=== PATIENT | male | born 1960 | race Caucasian/White ===

== ENCOUNTER 2018-02-14 16:37 | Emergency (ER) | payer MEDICAID, SELFPAY ==
--- NOTE | 2018-02-14 16:47 | DI.RAD_ITS ---
SYMPTOM/DIAGNOSIS: RECENT DIAGNOSIS OF LYMPHOMA, COUGH FRONTAL AND LATERAL CHEST: Comparison is made with 07/15/1997. Heart size and pulmonary vasculature are within normal limits. The lungs are clear and well expanded. The lungs do appear to be hyperinflated suggesting underlying COPD. No infiltrates, effusions or pneumothoraces are identified. Degenerative changes are seen in the spine. IMPRESSION: No acute pulmonary process.
[2018-02-14 16:51] VITALS: BP 126/89; PULSE 82; RESP 16; TEMP 37.2; O2SAT 97
--- NOTE | 2018-02-14 16:55 | ED.GENADUL_ITS ---
Discharge Plan Discharge Details Chief Complaint: RashLesion Primary Care Provider: Christian Vance ED Provider: Blair Dominguez Home Meds and New Rx's Prescriptions: No Action benzoyl peroxide 60 GM gel 60 gm Topical HS PRNRF: 0 ketoconazole 120 ML shampoo 120 ml Topical PRN RF: 0 trazodone 50 MG tablet 75 mg PO HS 90 Days Qty: 135 RF: 3 pravastatin 40 MG tablet 40 mg PO DAILY 90 Days Qty: 90 RF: 3 ranitidine HCl 150 MG tablet 150 mg PO BID PRN90 Days Qty: 180 RF: 3 escitalopram oxalate 20 MG tablet 20 mg PO DAILY Qty: 90 RF: 3 Medical Decision Making MDM Narrative Medical decision making narrative: 58-year-old male with recent biopsy-proven diagnosis of lymphoma for which he has pending follow-up with oncology. He presents on referral from primary care clinic with weeks of pruritic rash as well as new development of cough. He is pleasant and in no acute distress. His vital signs are reassuring. His pruritic rash may represent a paraneoplastic process. He is at risk for anemia or thrombocytopenia, must exclude pneumonia. Patient was referred for chest XR and laboratory tests. Chest x-ray shows evidence of COPD but no acute findings. Laboratories revealed white blood cell count of 13, platelets 225, hematocrit 48. Chemistries are reviewed and reassuring. Patient is without acute findings. Stable for outpatient management will follow up with the oncology clinic as planned. Will trial Atarax for the pruritus of his rash. He will return to the emergency department for any acute concern HPI - General Adult General Mode of arrival: ambulatory . Date/Time Provider Initiated Documentation: 02/14/18 16:40 . Limitations to Documentation: no limitations . Information obtained by: patient and family . History of Present Illness 58 year old M presents to the emergency department with the chief complaint of Cough and Rash, described as moderate, Patient started experiencing this day (s) and it has been constant. No exacerbating factors reported . Patient notes rash. HPI Narrative: 58-year-old male referred from primary care office. He was recently diagnosed with lymphoma by biopsy for which he has planned follow-up with oncology at [facility]. Seen in the office today for routine follow-up when he noted that he has had persistent itching rash that has been on arms, legs, chest and abdomen 4 weeks time, as well as a few days of worsening cough with production of sputum. Related Data Home Medications Medication Instructions Recorded Confirmed benzoyl peroxide 60 gm TOPICAL HS PRN script 08/05/13 02/14/18 ketoconazole 120 ml TOPICAL PRN script 10/08/13 02/14/18 ranitidine HCl 150 mg PO BID PRN 90 Days #180 01/09/18 02/14/18 tab-cap Previous Rx's Medication Instructions Recorded pravastatin 40 mg PO DAILY 90 Days #90 tab-cap 01/09/18 trazodone 75 mg PO HS 90 Days #135 tab-cap 01/09/18 escitalopram oxalate 20 mg PO DAILY #90 tab-cap 01/13/18 Allergies Allergy/AdvReac Type Severity Reaction Status Date / Time Penicillins Allergy Intermediate rash Unverified 02/14/18 16:56 amoxicillin Allergy Unknown Unverified 02/14/18 16:56 sulfamethoxazole Allergy Unknown Unverified 02/14/18 16:56 trimethoprim Allergy Unknown Unverified 02/14/18 16:56 simvastatin AdvReac Unknown muscle Unverified 02/14/18 16:56 cramps Review of Systems Review of Systems 8 systems reviewed and otherwise neg PFSH Family History Mother No problems noted. Father No problems noted. Social History frequency: daily Smoking/Tobacco Use Status: Never alcohol intake: never substance use type: does not use Surgical History Colonoscopy - IV Sedation (~05/2010) biopsy L Temporal Scalp (11/15/17) laryngoscopy (11/14/17) Exam Narrative Exam Narrative: GEN: awake, alert, oriented 3. Pleasant, well groomed, interactive. HEAD: Normocephalic, atraumatic ENT: Mucous membranes moist, L neck with large submandibular swollen lymph node. EYES: PERRL, EOMI NECK: Full ROM, no MEJIA, no menigismus CHEST/RESP: Nontender, clear to auscultation bilateral, no wheeze/rhonchi/rales CARDIOVASCULAR: RRR, no murmur, rub alex. 2+ Rad pulse bilateral ABDOMEN: Soft, nontender, no mass. +Bowel sounds EXT: Full ROM, no edema SKIN: raised erythematous rash with excoriations present onbilateral lower legs , abdomen, chest. No vesicles Neuro: Grossly normal neurologic exam, conversant, interactive. Psych: Speech fluent, thoughts congruent, affect normal
[2018-02-14 18:26] LABS: HCT 48.5 % (40.0-50.0); HGB 16.2 g/dL (13.5-17.5); Mean Corp. HGB Concentration 33.4 g/dL (32.0-36.0); Mean Corpuscular Hemoglobin 30.1 pg (27.0-33.0); Mean Platelet Volume 9.1 fL (8.0-11.0); Platelet Count 225 x1000/uL (130-400); RBC 5.39 m/cumm (4.50-6.00); RBC Distribution Width 13.3 % (11.8-14.1); White Blood Cell Count 13.87 k/cumm (4.4-10.8)
--- NOTE | 2018-02-14 18:34 | DI.VRAD_ITS ---
EXAM: XR Chest, 2 Views CLINICAL HISTORY: 58 years old, male; Signs and symptoms; Cough; Patient HX: Recent diagnosis of lymphoma TECHNIQUE: Frontal and lateral views of the chest. COMPARISON: No relevant prior studies available. FINDINGS: Lungs: Hyperexpanded lungs consistent with COPD. No pulmonary consolidation. Pleural space: Unremarkable. No pneumothorax. Heart: Unremarkable. No cardiomegaly. Mediastinum: Unremarkable. Bones/joints: Unremarkable. IMPRESSION: COPD. Dictated and Authenticated by: Raghavendra Yuo MD. Ordering:ORQUIDEA SEYMOUR MD
[2018-02-14 18:38] LABS: INR 1.1 (1.0-3.5)
[2018-02-14 18:45] LABS: Absolute Eosinophil Count 2.22 k/cumm (0.0-0.7); Absolute Lymphocyte Count 4.72 k/cumm (1.2-3.4); Absolute Monocyte Count 1.25 k/cumm (0.11-0.7); Absolute Neutrophil Count 5.69 k/cumm (1.2-6.7)
[2018-02-14 18:46] LABS: Diff Comment Manual Differential; RBC Morphology Normal
[2018-02-14 19:13] LABS: ALT 66 U/L (12-78); AST 27 U/L (15-37); Albumin 3.8 g/dL (3.4-5.0); Alkaline Phosphatase 134 U/L (46-116); Anion Gap 5.4 mmol/L (3-11); BUN 18 mg/dL (7-18); Bilirubin, Total 0.5 mg/dL (0.2-1.0); CO2 33.6 mmol/L (21.0-32.0); CREATININE 0.99 mg/dL (0.70-1.30); Calcium 9.1 mg/dL (8.5-10.1); Chloride 102 mmol/L (98-107); Glucose 89 mg/dL (70-100); Potassium 4.5 mmol/L (3.5-5.1); Sodium 141 mmol/L (136-145); Total Protein 7.7 g/dL (6.4-8.2)
[2018-02-14] MEDS: hydrOXYzine HCL 25 MG TAB 100 MG PO (19:32)
[2018-02-14 19:42] VITALS: BP 121/80; PULSE 78; RESP 16; TEMP 37; O2SAT 98
== END 2018-02-14 19:43 | disposition home or self-care (01) ==
PROVIDERS: Emergency Provider Emergency Medicine; PCP Family Medicine
DX: C85.90 Non-Hodgkin lymphoma, unspecified, unspecified site (principal); R21 Rash and other nonspecific skin eruption; L29.9 Pruritus, unspecified; R05 Cough
CPT/HCPCS: 36415; 80053; 99283; 71046; 85025; 85610

== ENCOUNTER 2018-03-20 12:36 | Outpatient (CLI) | payer MEDICAID, SELFPAY ==
[2018-03-20 13:42] LABS: Iron 93 ug/dL (50-175); Total Iron Binding Capacity 318 ug/dL (250-450); Transferrin Sat 29 % (20-55)
[2018-03-20 14:26] LABS: Vitamin B12 1086 pg/mL (193-986)
== END 2018-03-20 12:56 ==
PROVIDERS: PCP Family Medicine; Visit Provider Family Medicine
DX: R53.83 Other fatigue (principal)
CPT/HCPCS: 36415; 82607; 83540; 83550; 84443

== ENCOUNTER 2018-04-03 11:10 | Outpatient (CLI) | payer MEDICAID, SELFPAY ==
[2018-04-03 11:40] LABS: Abs Immature Grans 0.01 k/cumm (0.0-0.09); Absolute Basophil Count 0.05 k/cumm (0.0-0.2); Absolute Eosinophil Count 0.19 k/cumm (0.0-0.7); Absolute Lymphocyte Count 3.51 k/cumm (1.2-3.4); Absolute Monocyte Count 0.61 k/cumm (0.11-0.7); Absolute Neutrophil Count 4.43 k/cumm (1.2-6.7); Basophils % 0.6; Eosinophils % 2.2; HCT 46.4 % (40.0-50.0); HGB 15.4 g/dL (13.5-17.5); Immature Grans % 0.1; Lymphocytes % 39.9; Mean Corp. HGB Concentration 33.2 g/dL (32.0-36.0); Mean Corpuscular Hemoglobin 29.8 pg (27.0-33.0); Mean Corpuscular Volume 89.9 fL (80-95); Mean Platelet Volume 9.4 fL (8.0-11.0); Monocytes % 6.9; Neutrophils % 50.3; Platelet Count 162 x1000/uL (130-400); RBC 5.16 m/cumm (4.50-6.00); RBC Distribution Width 13.2 % (11.8-14.1)
[2018-04-03 11:56] LABS: ALT 27 U/L (12-78); AST 16 U/L (15-37); Albumin 3.9 g/dL (3.4-5.0); Alkaline Phosphatase 76 U/L (46-116); Anion Gap 6.5 mmol/L (3-11); BUN 19 mg/dL (7-18); Bilirubin, Total 0.7 mg/dL (0.2-1.0); CO2 32.5 mmol/L (21.0-32.0); CREATININE 0.99 mg/dL (0.70-1.30); Calcium 8.5 mg/dL (8.5-10.1); Chloride 101 mmol/L (98-107); Glucose 100 mg/dL (70-100); LDH 137 U/L (85-227); Potassium 4.3 mmol/L (3.5-5.1); Sodium 140 mmol/L (136-145); Total Protein 6.9 g/dL (6.4-8.2)
== END 2018-04-03 11:30 ==
PROVIDERS: PCP Family Medicine; Visit Provider Internal Medicine Hematology & Oncology
DX: D47.9 Neoplasm of uncertain behavior of lymphoid, hematopoietic and related tissue, unspecified (principal)
CPT/HCPCS: 36415; 80053; 83615; 85025

== ENCOUNTER 2018-05-20 13:45 | Outpatient (CLI) | payer MEDICAID, SELFPAY ==
[2018-05-21 12:20] LABS: Syphilis Serology (RPR) Negative (Negative)
[2018-06-09 16:42] LABS: Spotted Fever Group Ab IgG <1:64; Spotted Fever Group Ab IgM <1:64
== END 2018-05-20 14:05 ==
PROVIDERS: PCP Family Medicine; Visit Provider Family Medicine
DX: L30.9 Dermatitis, unspecified (principal)
CPT/HCPCS: 36415; 86592; 86757

== ENCOUNTER 2018-07-04 09:29 | Outpatient (CLI) | payer MEDICAID, SELFPAY ==
[2018-07-04 09:50] LABS: Abs Immature Grans 0.02 k/cumm (0.0-0.09); Absolute Basophil Count 0.07 k/cumm (0.0-0.2); Absolute Eosinophil Count 0.26 k/cumm (0.0-0.7); Absolute Lymphocyte Count 4.52 k/cumm (1.2-3.4); Absolute Monocyte Count 0.66 k/cumm (0.11-0.7); Absolute Neutrophil Count 3.69 k/cumm (1.2-6.7); Basophils % 0.8; Eosinophils % 2.8; HCT 45.8 % (40.0-50.0); HGB 15.9 g/dL (13.5-17.5); Immature Grans % 0.2; Mean Corp. HGB Concentration 34.7 g/dL (32.0-36.0); Mean Corpuscular Hemoglobin 30.5 pg (27.0-33.0); Mean Corpuscular Volume 87.7 fL (80-95); Mean Platelet Volume 8.8 fL (8.0-11.0); Monocytes % 7.2; Platelet Count 175 x1000/uL (130-400); RBC 5.22 m/cumm (4.50-6.00); RBC Distribution Width 13.1 % (11.8-14.1); White Blood Cell Count 9.22 k/cumm (4.4-10.8)
[2018-07-04 10:02] LABS: ALT 29 U/L (12-78); AST 25 U/L (15-37); Albumin 3.8 g/dL (3.4-5.0); Alkaline Phosphatase 71 U/L (46-116); Anion Gap 7.3 mmol/L (3-11); BUN 22 mg/dL (7-18); Bilirubin, Total 0.9 mg/dL (0.2-1.0); CO2 29.7 mmol/L (21.0-32.0); CREATININE 1.11 mg/dL (0.70-1.30); Calcium 8.6 mg/dL (8.5-10.1); Chloride 104 mmol/L (98-107); Glucose 112 mg/dL (70-100); LDH 189 U/L (85-227); Sodium 141 mmol/L (136-145); Total Protein 7.1 g/dL (6.4-8.2)
== END 2018-07-04 09:49 ==
PROVIDERS: PCP Family Medicine; Visit Provider Nurse Practitioner Family
DX: C91.92 Lymphoid leukemia, unspecified, in relapse (principal)
CPT/HCPCS: 36415; 80053; 83615; 85025

== ENCOUNTER 2018-08-18 08:20 | Outpatient (CLI) | payer MEDICAID, SELFPAY ==
[2018-08-18 09:22] LABS: HCT 48.8 % (40.0-50.0); HGB 16.7 g/dL (13.5-17.5); Mean Corp. HGB Concentration 34.2 g/dL (32.0-36.0); Mean Corpuscular Hemoglobin 29.3 pg (27.0-33.0); Mean Corpuscular Volume 85.8 fL (80-95); Mean Platelet Volume 9.7 fL (8.0-11.0); Platelet Count 193 x1000/uL (130-400); RBC 5.69 m/cumm (4.50-6.00); White Blood Cell Count 11.33 k/cumm (4.4-10.8)
[2018-08-18 09:42] LABS: Absolute Basophil Count 0.23 k/cumm (0.0-0.2); Absolute Eosinophil Count 0.11 k/cumm (0.0-0.7); Absolute Lymphocyte Count 4.99 k/cumm (1.2-3.4); Absolute Monocyte Count 0.91 k/cumm (0.11-0.7); Atypical Lymphocytes % 14
[2018-08-18 09:43] LABS: Diff Comment Manual Differential; RBC Morphology Normal
[2018-08-18 11:13] LABS: ALT 21 U/L (12-78); AST 18 U/L (15-37); Alkaline Phosphatase 95 U/L (46-116); Anion Gap 7.7 mmol/L (3-11); BUN 18 mg/dL (7-18); CO2 32.3 mmol/L (21.0-32.0); CREATININE 1.07 mg/dL (0.70-1.30); Calcium 9.1 mg/dL (8.5-10.1); Chloride 101 mmol/L (98-107); Cholesterol 378 mg/dL (50-200); Glucose 113 mg/dL (70-100); HDL Cholesterol 48 mg/dL (40-60); LDL CHOLESTEROL 145 mg/dL (<100); Potassium 4.3 mmol/L (3.5-5.1); Sodium 141 mmol/L (136-145); Total Protein 7.2 g/dL (6.4-8.2); Triglyceride 334 mg/dL (30-150)
[2018-08-18 11:30] LABS: TSH (W/Ref FT4) 1.34 uIU/mL (0.358-3.74)
[2018-08-19 10:23] LABS: PSA, Screening 1.5 ng/ml (0-4.5)
== END 2018-08-18 08:40 ==
PROVIDERS: PCP Family Medicine; Visit Provider Family Medicine
DX: E78.5 Hyperlipidemia, unspecified (principal); Z12.5 Encounter for screening for malignant neoplasm of prostate; Z80.42 Family history of malignant neoplasm of prostate; Z92.3 Personal history of irradiation
CPT/HCPCS: 36415; 80053; 80061; 83721; 84153; 84443; 85025

== ENCOUNTER 2018-09-25 02:44 | Outpatient (CLI) | payer MEDICAID, SELFPAY ==
[2018-09-25 08:59] LABS: Abs Immature Grans 0.02 k/cumm (0.0-0.09); Absolute Basophil Count 0.05 k/cumm (0.0-0.2); Absolute Lymphocyte Count 4.05 k/cumm (1.2-3.4); Absolute Monocyte Count 0.62 k/cumm (0.11-0.7); Absolute Neutrophil Count 4.88 k/cumm (1.2-6.7); Basophils % 0.5; HCT 44.3 % (40.0-50.0); Immature Grans % 0.2; Lymphocytes % 41.2; Mean Corp. HGB Concentration 33.9 g/dL (32.0-36.0); Mean Corpuscular Hemoglobin 29.5 pg (27.0-33.0); Mean Corpuscular Volume 87.2 fL (80-95); Mean Platelet Volume 9.9 fL (8.0-11.0); Monocytes % 6.3; Neutrophils % 49.8; Platelet Count 184 x1000/uL (130-400); RBC 5.08 m/cumm (4.50-6.00); RBC Distribution Width 13.6 % (11.8-14.1); White Blood Cell Count 9.82 k/cumm (4.4-10.8)
[2018-09-25 09:10] LABS: ALT 29 U/L (12-78); AST 24 U/L (15-37); Albumin 3.9 g/dL (3.4-5.0); Alkaline Phosphatase 94 U/L (46-116); Anion Gap 8.4 mmol/L (3-11); BUN 24 mg/dL (7-18); Bilirubin, Total 1.2 mg/dL (0.2-1.0); CO2 27.6 mmol/L (21.0-32.0); CREATININE 1.09 mg/dL (0.70-1.30); Calcium 8.5 mg/dL (8.5-10.1); Chloride 104 mmol/L (98-107); Glucose 103 mg/dL (70-100); LDH 181 U/L (85-227); Potassium 3.8 mmol/L (3.5-5.1); Sodium 140 mmol/L (136-145); Total Protein 6.9 g/dL (6.4-8.2)
== END 2018-09-25 03:04 ==
PROVIDERS: PCP Family Medicine; Visit Provider Internal Medicine Hematology & Oncology
DX: C91.92 Lymphoid leukemia, unspecified, in relapse (principal)
CPT/HCPCS: 36415; 80053; 83615; 85025

== ENCOUNTER 2018-11-10 08:09 | Outpatient (CLI) | payer MEDICAID, SELFPAY ==
[2018-11-10 09:00] LABS: ALT 40 U/L (12-78); AST 24 U/L (15-37); Albumin 4.1 g/dL (3.4-5.0); Alkaline Phosphatase 100 U/L (46-116); Bilirubin, Direct 0.22 mg/dL (0.00-0.20); Bilirubin, Total 1.2 mg/dL (0.2-1.0); Total Protein 7.1 g/dL (6.4-8.2)
[2018-11-10 09:01] LABS: Calculated LDL 70; Cholesterol 147 mg/dL (50-200); HDL Cholesterol 47 mg/dL (40-60); Triglyceride 150 mg/dL (30-150)
== END 2018-11-10 08:29 ==
PROVIDERS: PCP Family Medicine; Visit Provider Family Medicine
DX: E78.5 Hyperlipidemia, unspecified (principal)
CPT/HCPCS: 36415; 80061; 80076; 83721

== ENCOUNTER 2018-11-26 00:21 | Outpatient (CLI) | payer MEDICAID, SELFPAY ==
--- NOTE | 2018-11-26 06:39 | DI.US_ITS ---
SYMPTOM/DIAGNOSIS: PERSISTENT ELEVATED BILIRUBIN, ASYMPTOMATIC, E80.6 ABDOMEN ULTRASOUND: The liver is unremarkable in appearance except for a 12 mm. in diameter homogeneous echogenic lesion of the right hepatic lobe consistent with hepatic hemangioma. There is no evidence of cholelithiasis or biliary dilatation. Pancreas appears intact as visualized. Spleen and kidneys are normal in appearance. Abdominal aorta and IVC are of normal diameter. CONCLUSION: No evidence of cholelithiasis. Incidental small hepatic lesion, likely hemangioma. Follow up ultrasound recommended in 6 months to confirm the stability of this lesion.
== END 2018-11-26 00:41 ==
PROVIDERS: PCP Family Medicine; Visit Provider Family Medicine
DX: E80.6 Other disorders of bilirubin metabolism (principal); K76.9 Liver disease, unspecified; D18.03 Hemangioma of intra-abdominal structures
CPT/HCPCS: 76700

== ENCOUNTER 2019-01-06 01:29 | Outpatient (CLI) | payer MEDICAID, SELFPAY ==
[2019-01-06 08:52] LABS: Abs Immature Grans 0.03 k/cumm (0.0-0.09); Absolute Basophil Count 0.07 k/cumm (0.0-0.2); Absolute Eosinophil Count 0.29 k/cumm (0.0-0.7); Basophils % 0.6; Eosinophils % 2.6; HCT 45.9 % (40.0-50.0); HGB 15.7 g/dL (13.5-17.5); Immature Grans % 0.3; Mean Corp. HGB Concentration 34.2 g/dL (32.0-36.0); Mean Corpuscular Hemoglobin 30.3 pg (27.0-33.0); Mean Corpuscular Volume 88.4 fL (80-95); Mean Platelet Volume 9.4 fL (8.0-11.0); Monocytes % 6.2; Neutrophils % 37.3; Platelet Count 172 x1000/uL (130-400); RBC 5.19 m/cumm (4.50-6.00); RBC Distribution Width 13.1 % (11.8-14.1); White Blood Cell Count 11.33 k/cumm (4.4-10.8)
[2019-01-06 08:56] LABS: Absolute Neutrophil Count 4.23 k/cumm (1.2-6.7)
[2019-01-06 09:06] LABS: ALT 30 U/L (12-78); AST 18 U/L (15-37); Albumin 3.8 g/dL (3.4-5.0); Alkaline Phosphatase 87 U/L (46-116); Anion Gap 7.1 mmol/L (3-11); BUN 26 mg/dL (7-18); Bilirubin, Total 0.7 mg/dL (0.2-1.0); CO2 28.9 mmol/L (21.0-32.0); CREATININE 1.09 mg/dL (0.70-1.30); Calcium 8.5 mg/dL (8.5-10.1); Chloride 106 mmol/L (98-107); Glucose 105 mg/dL (70-100); LDH 184 U/L (85-227); Potassium 4.3 mmol/L (3.5-5.1); Sodium 142 mmol/L (136-145); Total Protein 7.1 g/dL (6.4-8.2)
[2019-01-06 09:08] LABS: Diff Comment Diff Reviewed; RBC Morphology Normal
== END 2019-01-06 01:49 ==
PROVIDERS: Internal Medicine Hematology & Oncology; PCP Family Medicine; Visit Provider Nurse Practitioner Family
DX: C91.92 Lymphoid leukemia, unspecified, in relapse (principal)
CPT/HCPCS: 36415; 80053; 83615; 85025

== ENCOUNTER 2019-04-08 02:38 | Outpatient (CLI) | payer MEDICAID, SELFPAY ==
[2019-04-08 10:28] LABS: HCT 46.2 % (40.0-50.0); HGB 15.2 g/dL (13.5-17.5); Mean Corp. HGB Concentration 32.9 g/dL (32.0-36.0); Mean Corpuscular Hemoglobin 29.6 pg (27.0-33.0); Mean Corpuscular Volume 90.1 fL (80-95); Mean Platelet Volume 8.8 fL (8.0-11.0); Platelet Count 178 x1000/uL (130-400); RBC 5.13 m/cumm (4.50-6.00); RBC Distribution Width 13.7 % (11.8-14.1); White Blood Cell Count 11.41 k/cumm (4.4-10.8)
[2019-04-08 10:39] LABS: ALT 52 U/L (16-63); AST 30 U/L (15-37); Alkaline Phosphatase 86 U/L (46-116); Anion Gap 5.3 mmol/L (3-11); BUN 21 mg/dL (7-18); Bilirubin, Total 0.8 mg/dL (0.2-1.0); CO2 31.7 mmol/L (21.0-32.0); CREATININE 1.08 mg/dL (0.70-1.30); Calcium 8.4 mg/dL (8.5-10.1); Chloride 105 mmol/L (98-107); Glucose 98 mg/dL (70-100); LDH 177 U/L (85-227); Potassium 4.3 mmol/L (3.5-5.1); Sodium 142 mmol/L (136-145); Total Protein 7.1 g/dL (6.4-8.2)
[2019-04-08 11:01] LABS: Absolute Eosinophil Count 0.34 k/cumm (0.0-0.7); Absolute Monocyte Count 0.57 k/cumm (0.11-0.7); Absolute Neutrophil Count 3.88 k/cumm (1.2-6.7); Diff Comment Manual Differential; RBC Morphology Normal
[2019-04-10 11:29] LABS: Atypical Lymphocytes % 0
[2019-04-10 11:30] LABS: Absolute Lymphocyte Count 6.62 k/cumm (1.2-3.4)
== END 2019-04-08 02:58 ==
PROVIDERS: PCP Family Medicine; Visit Provider Internal Medicine Hematology & Oncology
DX: C91.90 Lymphoid leukemia, unspecified not having achieved remission (principal)
CPT/HCPCS: 36415; 80053; 83615; 85025

== ENCOUNTER 2019-06-01 00:36 | Outpatient (CLI) | payer OTHER, MEDICAID, SELFPAY ==
--- NOTE | 2019-06-01 10:22 | DI.RAD_ITS ---
EXAM: XR LUMBAR SPINE AP, LAT INDICATION: BACK PAIN, PHOTO ID VERIFIED. COMPARISON: No exams were available for comparison TECHNIQUE: 2D digital imaging was performed. FINDINGS: There is normal alignment of the lumbar spine. No acute fracture or subluxation is seen. Moderate d egenerative changes are present throughout the lumbar spine. The bones are normally mineralized. IMPRESSION: Moderate degenerative changes in the lumbar spine.
== END 2019-06-01 00:56 ==
PROVIDERS: PCP Family Medicine; Visit Provider Pediatrics Pediatric Rheumatology
DX: M54.5 Low back pain (principal); M47.816 Spondylosis without myelopathy or radiculopathy, lumbar region
CPT/HCPCS: 72100

== ENCOUNTER 2019-08-05 02:32 | Outpatient (CLI) | payer MEDICAID, SELFPAY ==
[2019-08-05 08:20] LABS: Abs Immature Grans 0.05 k/cumm (0.0-0.09); HCT 45.3 % (40.0-50.0); HGB 15.5 g/dL (13.5-17.5); Mean Corp. HGB Concentration 34.2 g/dL (32.0-36.0); Mean Corpuscular Hemoglobin 30.3 pg (27.0-33.0); Mean Corpuscular Volume 88.5 fL (80-95); Mean Platelet Volume 8.8 fL (8.0-11.0); Platelet Count 183 x1000/uL (130-400); RBC 5.12 m/cumm (4.50-6.00); RBC Distribution Width 13.2 % (11.8-14.1); White Blood Cell Count 18.18 k/cumm (4.4-10.8)
[2019-08-05 08:38] LABS: ALT 25 U/L (16-63); AST 20 U/L (15-37); Albumin 3.9 g/dL (3.4-5.0); Alkaline Phosphatase 85 U/L (46-116); Anion Gap 4.6 mmol/L (3-11); BUN 23 mg/dL (7-18); CO2 32.4 mmol/L (21.0-32.0); CREATININE 1.09 mg/dL (0.70-1.30); Calcium 7.7 mg/dL (8.5-10.1); Chloride 105 mmol/L (98-107); Glucose 99 mg/dL (74-106); LDH 168 U/L (85-227); Potassium 3.9 mmol/L (3.5-5.1); Sodium 142 mmol/L (136-145); Total Protein 6.7 g/dL (6.4-8.2)
[2019-08-05 08:45] LABS: Absolute Eosinophil Count 0.18 k/cumm (0.0-0.7); Absolute Lymphocyte Count 13.09 k/cumm (1.2-3.4); Absolute Monocyte Count 0.36 k/cumm (0.11-0.7); Absolute Neutrophil Count 4.55 k/cumm (1.2-6.7); Diff Comment Manual Differential; RBC Morphology Normal
== END 2019-08-05 02:52 ==
PROVIDERS: PCP Family Medicine; Visit Provider Internal Medicine Hematology & Oncology
DX: C91.90 Lymphoid leukemia, unspecified not having achieved remission (principal)
CPT/HCPCS: 36415; 80053; 83615; 85025

== ENCOUNTER 2019-10-09 09:01 | Outpatient (CLI) | payer MEDICAID, SELFPAY ==
[2019-10-10 15:50] LABS: COVID-19 RT-PCR UVMMC Result Negative (Negative)
== END 2019-10-09 09:21 ==
PROVIDERS: PCP Family Medicine; Visit Provider Family Medicine
DX: R05 Cough (principal)
CPT/HCPCS: U0003

== ENCOUNTER 2019-10-20 03:15 | Outpatient (CLI) | payer MEDICAID, SELFPAY ==
[2019-10-20 09:26] LABS: ALT 34 U/L (16-63); AST 29 U/L (15-37); Albumin 4.4 g/dL (3.4-5.0); Alkaline Phosphatase 85 U/L (46-116); BUN 19 mg/dL (7-18); CREATININE 1.08 mg/dL (0.70-1.30); Calcium 9.1 mg/dL (8.5-10.1); Calculated LDL 71 mg/dL (<100); Chloride 103 mmol/L (98-107); Cholesterol 142 mg/dL (<200); Glucose 99 mg/dL (74-106); HDL Cholesterol 56 mg/dL (40-60); Potassium 4.1 mmol/L (3.5-5.1); Sodium 142 mmol/L (136-145); Total Protein 7.2 g/dL (6.4-8.2); Triglyceride 79 mg/dL (<150)
[2019-10-20 09:31] LABS: Anion Gap 8.3 mmol/L (3-11); CO2 30.7 mmol/L (21.0-32.0)
[2019-10-21 10:52] LABS: PSA, Screening 1.5 ng/mL (0.0-4.5)
== END 2019-10-20 03:35 ==
PROVIDERS: PCP Family Medicine; Visit Provider Family Medicine
DX: Z13.220 Encounter for screening for lipoid disorders (principal); Z12.5 Encounter for screening for malignant neoplasm of prostate
CPT/HCPCS: 36415; 80053; 80061; 84153

== ENCOUNTER 2020-01-19 01:43 | Outpatient (CLI) | payer MEDICAID, SELFPAY ==
[2020-01-19 10:07] LABS: Abs Immature Grans 0.03 10^3/uL (0.0-0.06); HCT 45.4 % (40.0-50.0); HGB 15.3 g/dL (13.5-17.5); MCHC 33.7 % (32.0-36.0); MPV 9.4 fL (8.0-11.0); Nucleated RBC 0 %; Platelet Count 153 10^3/uL (130-400); RDW 12.4 % (11.8-14.1); RDW-SD 40.9 fL; WBC 11.82 10^3/uL (4.4-10.8)
[2020-01-19 10:29] LABS: Absolute Eosinophil Count 0.12 10^3/uL (0.0-0.7); Absolute Lymphocyte Count 8.51 10^3/uL (1.2-3.4); Absolute Monocyte Count 0.35 10^3/uL (0.1-0.8); Absolute Neutrophil Count 2.84 10^3/uL (1.2-6.7); Atypical Lymphocytes % 6; Diff Comment Manual Differential; RBC Morphology Normal
[2020-01-19 10:51] LABS: ALT 29 U/L (16-63); AST 24 U/L (15-37); Albumin 4.1 g/dL (3.4-5.0); Alkaline Phosphatase 73 U/L (46-116); Anion Gap 7.2 mmol/L (3-11); BUN 17 mg/dL (7-18); CO2 30.8 mmol/L (21.0-32.0); Calcium 8.6 mg/dL (8.5-10.1); Chloride 104 mmol/L (98-107); Glucose 99 mg/dL (74-106); LDH 171 U/L (85-227); Potassium 4.2 mmol/L (3.5-5.1); Sodium 142 mmol/L (136-145); Total Protein 6.6 g/dL (6.4-8.2)
[2020-01-20 09:38] LABS: IgA 127 mg/dL (85-499); IgG 704 mg/dL (610-1,616); IgM 70 mg/dL (35-242)
== END 2020-01-19 02:03 ==
PROVIDERS: PCP Family Medicine; Visit Provider Internal Medicine Hematology & Oncology
DX: C91.10 Chronic lymphocytic leukemia of B-cell type not having achieved remission (principal)
CPT/HCPCS: 36415; 80053; 82784; 83615; 85025

== ENCOUNTER 2020-04-01 11:15 | Outpatient (CLI) | payer MEDICAID, SELFPAY ==
[2020-04-06 01:45] LABS: Patient Race White; SARS-CoV-2 Specimen Source Nasal
[2020-04-06 03:02] LABS: SARS-CoV-2 RNA Detected (Undetected)
== END 2020-04-01 11:35 ==
PROVIDERS: PCP Family Medicine; Visit Provider Family Medicine
DX: J31.0 Chronic rhinitis (principal)
CPT/HCPCS: U0003

== ENCOUNTER 2020-06-28 03:53 | Outpatient (CLI) | payer MEDICAID, SELFPAY ==
[2020-06-28 10:02] LABS: HCT 50.4 % (40.0-50.0); HGB 16.7 g/dL (13.5-17.5); MCH 29.7 pg (27.0-33.0); MCHC 33.1 % (32.0-36.0); MCV 89.7 fL (80-95); MPV 9.4 fL (8.0-11.0); Nucleated RBC 0 %; Platelet Count 156 10^3/uL (130-400); RBC 5.62 10^6/uL (4.36-5.78); RDW 12.4 % (11.8-14.1); RDW-SD 41.1 fL; WBC 15.04 10^3/uL (4.4-10.8)
[2020-06-28 10:03] LABS: Abs Immature Grans 0.03 10^3/uL (0.0-0.06)
[2020-06-28 10:26] LABS: Absolute Eosinophil Count 0.15 10^3/uL (0.0-0.7); Absolute Lymphocyte Count 9.63 10^3/uL (1.2-3.4); Absolute Neutrophil Count 4.36 10^3/uL (1.2-6.7); Atypical Lymphocytes % 9
[2020-06-28 10:28] LABS: Diff Comment Manual Differential; RBC Morphology Normal
[2020-06-28 10:41] LABS: ALT 26 U/L (16-63); AST 16 U/L (15-37); Albumin 4.2 g/dL (3.4-5.0); Alkaline Phosphatase 81 U/L (46-116); Anion Gap 5.1 mmol/L (3-11); BUN 23 mg/dL (7-18); CO2 30.9 mmol/L (21.0-32.0); CREATININE 1.18 mg/dL (0.70-1.30); Calcium 8.8 mg/dL (8.5-10.1); Chloride 102 mmol/L (98-107); Glucose 103 mg/dL (74-106); LDH 156 U/L (85-227); Potassium 4.1 mmol/L (3.5-5.1); Sodium 138 mmol/L (136-145); Total Protein 6.9 g/dL (6.4-8.2)
[2020-06-29 10:42] LABS: IgA 148 mg/dL (85-499); IgG 782 mg/dL (610-1,616); IgM 80 mg/dL (35-242)
== END 2020-06-28 04:13 ==
PROVIDERS: PCP Family Medicine; Visit Provider Internal Medicine Hematology & Oncology
DX: C91.10 Chronic lymphocytic leukemia of B-cell type not having achieved remission (principal)
CPT/HCPCS: 36415; 80053; 82784; 83615; 85025

== ENCOUNTER 2020-09-26 04:19 | Outpatient (CLI) | payer MEDICARE, MEDICAID, SELFPAY ==
[2020-09-26 22:23] LABS: PSA, Screening 1.7 ng/mL (0.0-4.5)
== END 2020-09-26 04:20 | disposition home or self-care (01) ==
LOC: LBO 04:19
PROVIDERS: PCP Family Medicine; Visit Provider Family Medicine
DX: N40.1 Benign prostatic hyperplasia with lower urinary tract symptoms (principal); N13.8 Other obstructive and reflux uropathy; Z12.5 Encounter for screening for malignant neoplasm of prostate
CPT/HCPCS: 36415; 84153

== ENCOUNTER → 2020-11-29 14:24 | Outpatient (BNVA) | payer MEDICARE, MEDICAID, SELFPAY | PROVIDERS: PCP Family Medicine; Referring Provider Family Medicine; Visit Provider Urology | DX: N40.0 Benign prostatic hyperplasia without lower urinary tract symptoms (principal) | CPT/HCPCS: 81003; 99213 ==

== ENCOUNTER 2021-01-10 03:35 | Outpatient (CLI) | payer MEDICARE, MEDICAID, SELFPAY ==
[2021-01-10 09:49] LABS: Abs Immature Grans 0.04 10^3/uL (0.0-0.06); HCT 45.6 % (40.0-50.0); MCH 29.7 pg (27.0-33.0); MCHC 32.9 % (32.0-36.0); MCV 90.3 fL (80-95); MPV 9.2 fL (8.0-11.0); Nucleated RBC 0 %; Platelet Count 159 10^3/uL (130-400); RBC 5.05 10^6/uL (4.36-5.78); RDW 12.8 % (11.8-14.1); RDW-SD 41.9 fL; WBC 16.96 10^3/uL (4.4-10.8)
[2021-01-10 10:08] LABS: Absolute Lymphocyte Count 11.53 10^3/uL (1.2-3.4); Absolute Neutrophil Count 4.58 10^3/uL (1.2-6.7); Atypical Lymphocytes % 4
[2021-01-10 10:09] LABS: Absolute Monocyte Count 0.85 10^3/uL (0.1-0.8); RBC Morphology Normal
[2021-01-10 10:10] LABS: Diff Comment Manual Differential
[2021-01-10 10:46] LABS: ALT 23 U/L (16-63); AST 19 U/L (15-37); Albumin 3.9 g/dL (3.4-5.0); Alkaline Phosphatase 78 U/L (46-116); Anion Gap 5.8 mmol/L (3-11); BUN 19 mg/dL (7-18); Bilirubin, Total 0.8 mg/dL (0.2-1.0); CO2 30.2 mmol/L (21.0-32.0); CREATININE 1.3 mg/dL (0.70-1.30); Calcium 8.4 mg/dL (8.5-10.1); Chloride 108 mmol/L (98-107); Estimated GFR 55.94 (mL/min/1.73m2); Glucose 99 mg/dL (74-106); Potassium 4.2 mmol/L (3.5-5.1); Sodium 144 mmol/L (136-145); Total Protein 6.5 g/dL (6.4-8.2)
[2021-01-10 11:10] LABS: LDH 175 U/L (85-227)
== END 2021-01-10 03:36 | disposition home or self-care (01) ==
PROVIDERS: PCP Family Medicine; Visit Provider Internal Medicine Hematology & Oncology
DX: C91.10 Chronic lymphocytic leukemia of B-cell type not having achieved remission (principal)
CPT/HCPCS: 36415; 80053; 83615; 85025

== ENCOUNTER 2021-06-28 01:25 | Outpatient (CLI) | payer MEDICARE, MEDICAID, SELFPAY ==
[2021-06-28 10:00] LABS: HGB 16.1 g/dL (13.5-17.5); MCH 29.4 pg (27.0-33.0); MCHC 32.9 % (32.0-36.0); MCV 89.4 fL (80-95); MPV 9.1 fL (8.0-11.0); Nucleated RBC 0 %; Platelet Count 169 10^3/uL (130-400); RBC 5.48 10^6/uL (4.36-5.78); RDW 12.8 % (11.8-14.1); RDW-SD 42.1 fL; WBC 18.04 10^3/uL (4.4-10.8)
[2021-06-28 10:30] LABS: Absolute Basophil Count 0.18 10^3/uL (0.0-0.2); Absolute Lymphocyte Count 11.55 10^3/uL (1.2-3.4); Absolute Neutrophil Count 5.41 10^3/uL (1.2-6.7); Atypical Lymphocytes % 13
[2021-06-28 10:31] LABS: Diff Comment Manual Differential; RBC Morphology Normal
[2021-06-28 11:07] LABS: ALT 23 U/L (16-63); AST 20 U/L (15-37); Albumin 4.2 g/dL (3.4-5.0); Alkaline Phosphatase 95 U/L (46-116); Anion Gap 8.8 mmol/L (3-11); BUN 16 mg/dL (7-18); CO2 30.2 mmol/L (21.0-32.0); CREATININE 1.1 mg/dL (0.70-1.30); Calcium 8.5 mg/dL (8.5-10.1); Chloride 103 mmol/L (98-107); Glucose 92 mg/dL (74-106); LDH 181 U/L (85-227); Potassium 4.1 mmol/L (3.5-5.1); Sodium 142 mmol/L (136-145)
== END 2021-06-28 01:26 | disposition home or self-care (01) ==
LOC: LBO 01:25
PROVIDERS: Otolaryngology; PCP Family Medicine; Visit Provider Internal Medicine Hematology & Oncology
DX: C91.10 Chronic lymphocytic leukemia of B-cell type not having achieved remission (principal); F41.1 Generalized anxiety disorder
CPT/HCPCS: 36415; 80053; 83615; 84443; 85025

== ENCOUNTER → 2021-07-07 14:48 | Outpatient (BNVA) | payer MEDICARE, MEDICAID, SELFPAY | PROVIDERS: PCP Family Medicine; Referring Provider Family Medicine; Visit Provider Urology | DX: N40.1 Benign prostatic hyperplasia with lower urinary tract symptoms (principal); N13.8 Other obstructive and reflux uropathy; R53.83 Other fatigue | CPT/HCPCS: 81003; 99214 ==

== ENCOUNTER 2021-07-17 01:35 | Outpatient (CLI) | payer MEDICARE, MEDICAID, SELFPAY ==
[2021-07-17 23:03] LABS: PSA, Diagnostic 1.9 ng/mL (0.0-4.5)
[2021-07-18 10:57] LABS: HIV-1/2 Ag & Ab Screen Negative (Negative)
[2021-07-18 11:01] LABS: Hepatitis C Ab w Rflx HCV PCR Negative (Negative)
[2021-07-20 17:06] LABS: Testosterone, Total 775 ng/dL (240-950)
== END 2021-07-17 01:36 | disposition home or self-care (01) ==
LOC: LBO 01:35
PROVIDERS: PCP Family Medicine; Visit Provider Urology
DX: N40.1 Benign prostatic hyperplasia with lower urinary tract symptoms (principal); N13.8 Other obstructive and reflux uropathy; N52.8 Other male erectile dysfunction; R53.83 Other fatigue; Z11.3 Encounter for screening for infections with a predominantly sexual mode of transmission; Z11.4 Encounter for screening for human immunodeficiency virus [HIV]; Z11.59 Encounter for screening for other viral diseases
CPT/HCPCS: 36415; 84403; 86803; 87389; 84153

== ENCOUNTER → 2021-08-01 14:37 | Outpatient (BNVA) | payer MEDICARE, MEDICAID, SELFPAY | PROVIDERS: PCP Family Medicine; Referring Provider Family Medicine; Visit Provider Urology | DX: N40.1 Benign prostatic hyperplasia with lower urinary tract symptoms (principal); N13.8 Other obstructive and reflux uropathy; N52.9 Male erectile dysfunction, unspecified; R53.83 Other fatigue | CPT/HCPCS: 81003; 99214 ==

== ENCOUNTER → 2021-09-19 14:21 | Outpatient (BNVA) | payer MEDICARE, MEDICAID, SELFPAY | PROVIDERS: PCP Family Medicine; Referring Provider Family Medicine; Visit Provider Urology | DX: R39.12 Poor urinary stream (principal); R39.89 Other symptoms and signs involving the genitourinary system | CPT/HCPCS: 99214 ==

== ENCOUNTER → 2021-10-10 00:48 | Outpatient (CLI) | payer MEDICARE, MEDICAID, SELFPAY ==
--- NOTE | 2021-10-10 08:30 | DI.CT_ITS ---
Exam(s) CT ABDOMEN PELVIS WO/W EXAM: CT ABDOMEN PELVIS WO/W CLINICAL HISTORY: r/o fistula, pneumaturia,r39.89. TECHNIQUE: Imaging Protocol: Axial computed tomography images with coronal and sagittal reformatted images were created and reviewed CONTRAST MATERIAL: Intravenous: Omnipaque 100cc Oral: None COMPARISON: US US ABDOMEN from 11/26/2018 FINDINGS: VISUALIZED LUNG BASES: Visualized lung bases are clear and there are no pleural effusions. ABDOMEN: There is no ascites. LIVER: There are few focal hypodensities in the liver, specifically in the right hepatic lobe. These range up to 1.2 cm and are not simple cysts. I note that ultrasound examination November 2018 revealed 1 of these to be a probable hemangioma. This is the largest 1 and therefore the others may also beam an giomas although cannot exclude totally metastatic disease. In addition, there is a 4th finding which measures 3 millimeters and has appearance of a simple tiny cyst in the inferior right hepatic lobe. T here is no dilatation of intrahepatic ducts. GALLBLADDER/BILIARY: There appears to be some sludge in the gallbladder. CBD is not dilated. PANCREAS: Pancreatic head and uncinate process are hypodense which is concerning for possible mass at this level versus volume averaging with adjacent duodenum. The CBD is not dilated. The pancreatic du ct is not dilated. SPLEEN: Mild splenomegaly. The splenic and portal veins are patent. ADRENALS: There are no significant adrenal masses. KIDNEYS:No cysts evident. No solid renal masses. No calculi nor hydronephrosis.. There is a solitar y nondilated ureter on each side. No consistent filling defects in these ureters nor within the renal pelves. No obvious mass in the urinary bladder although the bladder is not filled. There is no gas i n the bladder. ABDOMINAL AORTA: Abdominal aorta is not enlarged. LYMPH NODES:There is no retroperitoneal nor paraaortic adenopathy. ABDOMINAL WALL: No evidence of significant anterior abdominal wall nor inguinal hernia. GI: There is no evidence of bowel obstruction, free air, nor abscess. No obvious mesenteric masses. PELVIS: GI: No evidence of appendicitis.No evidence of sigmoid diverticulitis. LYMPH NODES: There is no intrapelvic nor inguinal adenopathy. REPRODUCTIVE: Prostate size upper. Seminal vesicles unremarkable. URINARY BLADDER: Collapsed no obvious abnormality. No diverticuli. OSSEOUS: No significant osseous lesions. IMPRESSION: 1. No significant acute findings in the urinary tracts. Both kidneys exhibit normal size no cysts, so lid renal masses, calculi nor hydronephrosis. There is a solitary nondilated ureter on each side. No obvious abnormality in the bladder which is difficult to assess because it is mostly collapsed. 2. There is no gas in the urinary bladder, given the history here. Bladder is somewhat difficult to a ssess because it is collapsed. There is no evidence of acute nor obvious subacute diverticulitis the adjacent sigmoid. 3. Pancreatic head appears somewhat abnormally hypodense but this is difficult to assess because of o verlying bowel loops and duodenal diverticulum. Pancreatic duct is not obviously dilated nor is the C BD. Recommend follow-up MRI study of the pancreas to determine if there is a pancreatic head mass. 4. There also few small lesions in the right hepatic lobe, only 1 which has appearance of a simple 3 millimeters cyst. The others are either hemangiomas or more concerning pathology, possibly related to the pancreatic findings. This can be further study sign this same MRI examination. RADIATION DOSE DELIVERED: 1,850.3mGy.cm Total DLP DATA REPOSITORY: All CT scans at this facility are submitted to the National Radiology Data Registry (NRDR) Dose Index Registry (DIR) with the [employer] ([employer]). RADIATION OPTIMIZATION: All CT scans at this facility use at least one of these dose optimization te chniques: automated exposure control; mA and/or kV adjustment per patient size (includes targeted exa ms where dose is matched to clinical indication); or iterative reconstruction.
[2021-10-10 13:26] LABS: CREATININE 1.2 mg/dL (0.70-1.30)
[2021-10-10] MEDS: Omnipaque 350 MG/ML 50 ML BTL IJ ×2 (14:21→14:22)
== END ==
PROVIDERS: PCP Family Medicine; Visit Provider Urology
DX: R39.89 Other symptoms and signs involving the genitourinary system (principal); K76.9 Liver disease, unspecified; K57.10 Diverticulosis of small intestine without perforation or abscess without bleeding; D18.09 Hemangioma of other sites
CPT/HCPCS: 74178; 82565; Q9967

== ENCOUNTER → 2021-10-12 09:06 | Outpatient (BNVA) | payer MEDICARE, MEDICAID, SELFPAY | PROVIDERS: PCP Family Medicine; Referring Provider Family Medicine; Visit Provider Urology | DX: R39.89 Other symptoms and signs involving the genitourinary system (principal) | CPT/HCPCS: 99213 ==

== ENCOUNTER → 2021-11-10 00:45 | Outpatient (CLI) | payer MEDICARE, MEDICAID, SELFPAY ==
[2021-11-10] MEDS: Gadoterate meglumine 20 ML VIAL 15 ML IVP (14:40)
--- NOTE | 2021-11-10 14:45 | DI.MRI_ITS ---
Exam(s) MR ABDOMEN WO/W EXAM: MR ABDOMEN WO/W CLINICAL HISTORY: Possible mass seen on CT,F/U ABNL CT, R93.5 TECHNIQUE: Multiplanar multisequence MRA of the Abdomen was performed. CONTRAST MATERIAL: IV Contrast: mL of Dotarem contrast administered. COMPARISON: CT CT ABDOMEN PELVIS WO/W from 10/10/2021 FINDINGS: The examination is limited due to patient motion artifact. Liver: There are 4 hepatic masses present. The largest is in the left lobe of the liver. It measure s 1.8 x 2.0 cm. It is hyperintense on the T2 weighted images and shows progressive enhancement on th e postcontrast images. It is finding is most consistent with a hemangioma. The other lesions show s imilar imaging characteristics. Pancreas: Unremarkable. The pancreas homogeneously enhances. No evidence of a pancreatic mass is see n. Gallbladder and Bile Ducts: Unremarkable. Adrenals: Unremarkable. Kidneys: Unremarkable. Spleen: Unremarkable. Bowel: Unremarkable. Aorta: Unremarkable. Soft Tissues: Unremarkable. Bone: Unremarkable. Lymph Nodes: Unremarkable. IMPRESSION: 1. No evidence of a pancreatic mass. 2. Hepatic lesions most suggestive of hepatic hemangiomas. DATA REPOSITORY:
== END ==
PROVIDERS: PCP Family Medicine; Visit Provider Family Medicine
DX: R93.5 Abnormal findings on diagnostic imaging of other abdominal regions, including retroperitoneum (principal); K76.89 Other specified diseases of liver; D18.03 Hemangioma of intra-abdominal structures; K86.89 Other specified diseases of pancreas
CPT/HCPCS: 74183

== ENCOUNTER 2022-01-03 03:22 | Outpatient (CLI) | payer MEDICARE, MEDICAID, SELFPAY ==
[2022-01-03 08:32] LABS: Abs Immature Grans 0.03 10^3/uL (0.0-0.06); HCT 48.8 % (40.0-50.0); HGB 16.1 g/dL (13.5-17.5); MCH 29.3 pg (27.0-33.0); MCV 89 fL (80-95); MPV 9.5 fL (8.0-11.0); Platelet Count 143 10^3/uL (130-400); RDW 12.6 % (11.8-14.1); RDW-SD 41.5 fL; WBC 16.76 10^3/uL (4.4-10.8)
[2022-01-03 09:06] LABS: Absolute Basophil Count 0.34 10^3/uL (0.0-0.2); Absolute Lymphocyte Count 10.89 10^3/uL (1.2-3.4); Absolute Monocyte Count 0.84 10^3/uL (0.1-0.8); Absolute Neutrophil Count 4.19 10^3/uL (1.2-6.7); Atypical Lymphocytes % 15; Diff Comment Manual Differential; RBC Morphology Normal
[2022-01-03 09:22] LABS: ALT 21 U/L (16-63); AST 15 U/L (15-37); Alkaline Phosphatase 84 U/L (46-116); Anion Gap 4.6 mmol/L (3-11); BUN 18 mg/dL (7-18); Bilirubin, Total 1.1 mg/dL (0.2-1.0); CO2 31.4 mmol/L (21.0-32.0); CREATININE 1.2 mg/dL (0.70-1.30); Calcium 8.5 mg/dL (8.5-10.1); Chloride 102 mmol/L (98-107); Glucose 101 mg/dL (74-106); LDH 165 U/L (85-227); Sodium 138 mmol/L (136-145); Total Protein 7.1 g/dL (6.4-8.2)
== END 2022-01-03 03:23 | disposition home or self-care (01) ==
LOC: LBO 03:23
PROVIDERS: PCP Family Medicine; Visit Provider Internal Medicine Hematology & Oncology
DX: C91.10 Chronic lymphocytic leukemia of B-cell type not having achieved remission (principal)
CPT/HCPCS: 36415; 80053; 83615; 85025

== ENCOUNTER 2022-02-16 01:45 | Outpatient (CLI) | payer MEDICARE, MEDICAID, SELFPAY ==
[2022-02-16 12:04] LABS: ALT 27 U/L (16-63); AST 25 U/L (15-37); Albumin 4.1 g/dL (3.4-5.0); Alkaline Phosphatase 80 U/L (46-116); Anion Gap 6.2 mmol/L (3-11); BUN 17 mg/dL (7-18); Bilirubin, Total 1.4 mg/dL (0.2-1.0); CO2 31.8 mmol/L (21.0-32.0); CREATININE 1.1 mg/dL (0.70-1.30); Calcium 8.8 mg/dL (8.5-10.1); Calculated LDL 50 mg/dL (<100); Chloride 103 mmol/L (98-107); Cholesterol 121 mg/dL (<200); Estimated GFR 74.96 (mL/min/1.73m2); Glucose 97 mg/dL (74-106); HDL Cholesterol 54 mg/dL (40-60); Potassium 4.1 mmol/L (3.5-5.1); Sodium 141 mmol/L (136-145); Total Protein 7.2 g/dL (6.4-8.2); Triglyceride 87 mg/dL (<150)
[2022-02-19 08:00] LABS: PSA, Screening 1.9 ng/mL (<=4.5)
== END 2022-02-16 01:46 | disposition home or self-care (01) ==
LOC: LBO 01:45
PROVIDERS: PCP Family Medicine; Visit Provider Family Medicine
DX: Z80.42 Family history of malignant neoplasm of prostate (principal); E78.5 Hyperlipidemia, unspecified; Z12.5 Encounter for screening for malignant neoplasm of prostate
CPT/HCPCS: 80053; 80061; 84153

== ENCOUNTER 2022-07-10 04:28 | Outpatient (CLI) | payer MEDICARE, MEDICAID, SELFPAY ==
[2022-07-10 12:33] LABS: Abs Immature Grans 0.05 10^3/uL (0.0-0.06); HGB 16.6 g/dL (13.5-17.5); MCHC 33.9 % (32.0-36.0); MCV 89 fL (80-95); RBC 5.53 10^6/uL (4.36-5.78); RDW 12.9 % (11.8-14.1); RDW-SD 41.9 fL; WBC 17.26 10^3/uL (4.4-10.8)
[2022-07-10 12:37] LABS: ALT 26 U/L (16-63); AST 23 U/L (15-37); Albumin 4.2 g/dL (3.4-5.0); Alkaline Phosphatase 93 U/L (46-116); Anion Gap 7.6 mmol/L (3-11); BUN 16 mg/dL (7-18); Bilirubin, Total 1.1 mg/dL (0.2-1.0); CO2 31.4 mmol/L (21.0-32.0); CREATININE 1.1 mg/dL (0.70-1.30); Calcium 8.7 mg/dL (8.5-10.1); Chloride 102 mmol/L (98-107); Estimated GFR 74.96 (mL/min/1.73m2); Glucose 96 mg/dL (74-106); LDH 169 U/L (85-227); Potassium 3.5 mmol/L (3.5-5.1); Sodium 141 mmol/L (136-145); Total Protein 7.2 g/dL (6.4-8.2)
[2022-07-10 14:27] LABS: Absolute Basophil Count 0.17 10^3/uL (0.0-0.2); Absolute Eosinophil Count 1.38 10^3/uL (0.0-0.7); Absolute Lymphocyte Count 10.01 10^3/uL (1.2-3.4); Absolute Monocyte Count 1.21 10^3/uL (0.1-0.8); Absolute Neutrophil Count 4.49 10^3/uL (1.2-6.7); Atypical Lymphocytes % 4; Bands % 0; Diff Comment Manual Differential; Platelet Count 149 10^3/uL (130-400)
[2022-07-10 14:28] LABS: RBC Morphology Normal
== END 2022-07-10 04:29 | disposition home or self-care (01) ==
LOC: LBO 04:28
PROVIDERS: PCP Family Medicine; Visit Provider Internal Medicine Hematology & Oncology
DX: C91.10 Chronic lymphocytic leukemia of B-cell type not having achieved remission (principal)
CPT/HCPCS: 36415; 80053; 83615; 85025

== ENCOUNTER → 2022-10-18 12:29 | Outpatient (BNVA) | payer MEDICARE, MEDICAID, SELFPAY | PROVIDERS: PCP Family Medicine; Referring Provider Family Medicine; Visit Provider Urology | DX: N40.1 Benign prostatic hyperplasia with lower urinary tract symptoms (principal); R39.89 Other symptoms and signs involving the genitourinary system; Z80.42 Family history of malignant neoplasm of prostate | CPT/HCPCS: 51798; 81003; 99213 ==

== ENCOUNTER 2023-01-08 03:56 | Outpatient (CLI) | payer MEDICARE, SELFPAY ==
[2023-01-08 11:09] LABS: Abs Immature Grans 0.04 10^3/uL (0.0-0.06); HCT 46.8 % (40.0-50.0); HGB 15.6 g/dL (13.5-17.5); MCH 29.4 pg (27.0-33.0); MCHC 33.3 % (32.0-36.0); MCV 88 fL (80-95); Platelet Count 152 10^3/uL (130-400); RBC 5.31 10^6/uL (4.36-5.78); RDW 12.9 % (11.8-14.1); RDW-SD 41.3 fL; WBC 18.61 10^3/uL (4.4-10.8)
[2023-01-08 11:32] LABS: Absolute Neutrophil Count 5.02 10^3/uL (1.2-6.7); Bands % 0
[2023-01-08 11:33] LABS: Absolute Basophil Count 0.19 10^3/uL (0.0-0.2); Absolute Lymphocyte Count 12.47 10^3/uL (1.2-3.4); Absolute Monocyte Count 0.93 10^3/uL (0.1-0.8); Atypical Lymphocytes % 18; Diff Comment Manual Differential; RBC Morphology Normal
[2023-01-08 11:37] LABS: ALT 37 U/L (16-63); AST 30 U/L (15-37); Albumin 3.9 g/dL (3.4-5.0); Alkaline Phosphatase 80 U/L (46-116); Anion Gap 6.3 mmol/L (3-11); BUN 19 mg/dL (7-18); Bilirubin, Total 1.1 mg/dL (0.2-1.0); CO2 30.7 mmol/L (21.0-32.0); CREATININE 1.2 mg/dL (0.70-1.30); Calcium 8.7 mg/dL (8.5-10.1); Chloride 105 mmol/L (98-107); Estimated GFR 67.53 (mL/min/1.73m2); Glucose 100 mg/dL (74-106); Potassium 4.2 mmol/L (3.5-5.1); Sodium 142 mmol/L (136-145); Total Protein 6.8 g/dL (6.4-8.2)
[2023-01-08 11:51] LABS: LDH 247 U/L (85-227)
== END 2023-01-08 03:57 | disposition home or self-care (01) ==
LOC: LBO 03:57
PROVIDERS: PCP Family Medicine; Visit Provider Internal Medicine Hematology & Oncology
DX: C91.10 Chronic lymphocytic leukemia of B-cell type not having achieved remission (principal)
CPT/HCPCS: 36415; 80053; 83615; 85025

== ENCOUNTER 2023-02-28 05:04 | Outpatient (CLI) | payer MEDICARE, SELFPAY ==
[2023-02-28 15:08] LABS: C-Reactive Protein 0.41 mg/dL (0.0-0.3)
[2023-02-28 21:39] LABS: Rheumatoid Factor <8.6 IU/mL (<12.0)
[2023-03-01 09:20] LABS: Cyclic Citrullinated Peptide <2.5 U/mL (<5.0)
== END 2023-02-28 05:05 | disposition home or self-care (01) ==
LOC: LBO 05:04
PROVIDERS: PCP Family Medicine; Visit Provider Family Medicine
DX: M25.652 Stiffness of left hip, not elsewhere classified (principal); M25.651 Stiffness of right hip, not elsewhere classified
CPT/HCPCS: 36415; 86200; 86140; 86431

== ENCOUNTER 2023-04-18 05:23 | Outpatient (CLI) | payer MEDICARE, SELFPAY ==
[2023-04-18 09:31] LABS: HCT 46.9 % (40.0-50.0); HGB 15.8 g/dL (13.5-17.5); MCH 29.6 pg (27.0-33.0); MCHC 33.7 % (32.0-36.0); MCV 88 fL (80-95); MPV 9.1 fL (8.0-11.0); Platelet Count 140 10^3/uL (130-400); RBC 5.34 10^6/uL (4.36-5.78); RDW 13.2 % (11.8-14.1); RDW-SD 42.4 fL; WBC 19.45 10^3/uL (4.4-10.8)
[2023-04-18 09:45] LABS: Absolute Monocyte Count 0.39 10^3/uL (0.1-0.8); Absolute Neutrophil Count 5.06 10^3/uL (1.2-6.7)
[2023-04-18 09:46] LABS: Atypical Lymphocytes % 6; Diff Comment Manual Differential; RBC Morphology Normal
[2023-04-18 10:23] LABS: ALT 56 U/L (16-63); AST 30 U/L (15-37); Albumin 3.9 g/dL (3.4-5.0); Alkaline Phosphatase 78 U/L (46-116); Anion Gap 5.7 mmol/L (3-11); BUN 18 mg/dL (7-18); Bilirubin, Total 1.1 mg/dL (0.2-1.0); CO2 29.3 mmol/L (21.0-32.0); CREATININE 1.1 mg/dL (0.70-1.30); Calcium 8.9 mg/dL (8.5-10.1); Chloride 105 mmol/L (98-107); Glucose 104 mg/dL (74-106); LDH 186 U/L (85-227); Potassium 4.1 mmol/L (3.5-5.1); Sodium 140 mmol/L (136-145); Total Protein 6.9 g/dL (6.4-8.2)
== END 2023-04-18 05:24 | disposition home or self-care (01) ==
LOC: LBO 05:23
PROVIDERS: PCP Family Medicine; Visit Provider Internal Medicine Hematology & Oncology
DX: C91.10 Chronic lymphocytic leukemia of B-cell type not having achieved remission (principal)
CPT/HCPCS: 36415; 80053; 83615; 85025

== ENCOUNTER 2023-07-09 04:44 | Outpatient (CLI) | payer MEDICARE, SELFPAY ==
[2023-07-09 10:13] LABS: Abs Immature Grans 0.04 10^3/uL (0.0-0.06); HGB 16.3 g/dL (13.5-17.5); MCH 29.5 pg (27.0-33.0); MCV 87 fL (80-95); MPV 9.6 fL (8.0-11.0); Platelet Count 127 10^3/uL (130-400); RBC 5.53 10^6/uL (4.36-5.78); RDW 12.9 % (11.8-14.1); RDW-SD 40.8 fL
[2023-07-09 10:15] LABS: Absolute Eosinophil Count 0.25 10^3/uL (0.0-0.7)
[2023-07-09 10:24] LABS: ALT 26 U/L (16-63); AST 20 U/L (15-37); Alkaline Phosphatase 80 U/L (46-116); BUN 21 mg/dL (7-18); CREATININE 1.2 mg/dL (0.70-1.30); Calcium 8.7 mg/dL (8.5-10.1); Chloride 104 mmol/L (98-107); Estimated GFR 67.11 (mL/min/1.73m2); Glucose 105 mg/dL (74-106); LDH 171 U/L (85-227); Potassium 4.3 mmol/L (3.5-5.1); Sodium 142 mmol/L (136-145)
[2023-07-09 10:43] LABS: Absolute Monocyte Count 1.76 10^3/uL (0.1-0.8); Absolute Neutrophil Count 3.02 10^3/uL (1.2-6.7); Atypical Lymphocytes % 6; Diff Comment Manual Differential
[2023-07-09 10:44] LABS: RBC Morphology Normal
[2023-07-09 10:45] LABS: WBC 25.13 10^3/uL (4.4-10.8)
== END 2023-07-09 04:45 | disposition home or self-care (01) ==
LOC: LBO 04:44
PROVIDERS: PCP Family Medicine; Visit Provider Internal Medicine Hematology & Oncology
DX: C91.10 Chronic lymphocytic leukemia of B-cell type not having achieved remission (principal)
CPT/HCPCS: 36415; 80053; 83615; 85025

== ENCOUNTER 2023-10-10 01:12 | Outpatient (CLI) | payer MEDICARE, SELFPAY ==
[2023-10-10 20:22] LABS: PSA, Diagnostic 2.2 ng/mL (<=4.5)
== END 2023-10-10 01:13 | disposition home or self-care (01) ==
LOC: LBO 01:12
PROVIDERS: PCP Family Medicine; Visit Provider Urology
DX: N40.1 Benign prostatic hyperplasia with lower urinary tract symptoms (principal); N13.8 Other obstructive and reflux uropathy
CPT/HCPCS: 36415; 84153

== ENCOUNTER → 2023-10-18 09:35 | Outpatient (BNVA) | payer MEDICARE, SELFPAY | PROVIDERS: PCP Family Medicine; Visit Provider Urology | DX: N40.1 Benign prostatic hyperplasia with lower urinary tract symptoms (principal); N13.8 Other obstructive and reflux uropathy | CPT/HCPCS: 51798; 99213 ==

== ENCOUNTER 2023-11-15 02:37 | Outpatient (CLI) | payer MEDICARE, SELFPAY ==
[2023-11-15 09:23] LABS: Anion Gap 8.3 mmol/L (3-11); BUN 24 mg/dL (7-18); CO2 28.7 mmol/L (21.0-32.0); CREATININE 1.2 mg/dL (0.70-1.30); Calcium 8.8 mg/dL (8.5-10.1); Calculated LDL 175 mg/dL (<100); Chloride 104 mmol/L (98-107); Cholesterol 253 mg/dL (<200); Estimated GFR 67.11 (mL/min/1.73m2); Glucose 109 mg/dL (74-106); HDL Cholesterol 59 mg/dL (40-60); Magnesium 2.3 mg/dL (1.8-2.4); Potassium 4.1 mmol/L (3.5-5.1); Sodium 141 mmol/L (136-145); Triglyceride 96 mg/dL (<150)
== END 2023-11-15 02:38 | disposition home or self-care (01) ==
LOC: LBO 02:37
PROVIDERS: PCP Family Medicine; Visit Provider Family Medicine
DX: E78.5 Hyperlipidemia, unspecified (principal); R25.2 Cramp and spasm
CPT/HCPCS: 36415; 80048; 80061; 83735

== ENCOUNTER 2024-01-08 03:47 | Outpatient (CLI) | payer MEDICARE, SELFPAY ==
[2024-01-08 10:16] LABS: HCT 46.3 % (40.0-50.0); HGB 15.5 g/dL (13.5-17.5); MCH 29.6 pg (27.0-33.0); MCHC 33.5 % (32.0-36.0); MCV 89 fL (80-95); MPV 9.3 fL (8.0-11.0); Platelet Count 135 10^3/uL (130-400); RBC 5.23 10^6/uL (4.36-5.78); RDW-SD 42.5 fL
[2024-01-08 10:29] LABS: Absolute Eosinophil Count 0.29 10^3/uL (0.0-0.7); Absolute Lymphocyte Count 22.19 10^3/uL (1.2-3.4); Absolute Monocyte Count 0.29 10^3/uL (0.1-0.8); Absolute Neutrophil Count 6.42 10^3/uL (1.2-6.7); Atypical Lymphocytes % 12 %; Diff Comment Manual Differential; RBC Morphology Normal
[2024-01-08 10:35] LABS: ALT 37 U/L (16-63); AST 27 U/L (15-37); Albumin 4.1 g/dL (3.4-5.0); Alkaline Phosphatase 84 U/L (46-116); Anion Gap 8.2 mmol/L (3-11); BUN 15 mg/dL (7-18); Bilirubin, Total 0.75 mg/dL (0.2-1.0); CO2 29.8 mmol/L (21.0-32.0); CREATININE 1.1 mg/dL (0.70-1.30); Calcium 9.1 mg/dL (8.5-10.1); Chloride 102 mmol/L (98-107); Glucose 107 mg/dL (74-106); LDH 217 U/L (85-227); Potassium 4.2 mmol/L (3.5-5.1); Sodium 140 mmol/L (136-145)
[2024-01-09 10:22] LABS: IgG 649 mg/dL (610-1616)
== END 2024-01-08 03:48 | disposition home or self-care (01) ==
LOC: LBO 03:47
PROVIDERS: PCP Family Medicine; Visit Provider Internal Medicine Hematology & Oncology
DX: C91.10 Chronic lymphocytic leukemia of B-cell type not having achieved remission (principal)
CPT/HCPCS: 36415; 80053; 82784; 83615; 85025

== ENCOUNTER 2024-07-14 03:27 | Outpatient (CLI) | payer MEDICARE, SELFPAY ==
[2024-07-14 10:24] LABS: Abs Immature Grans 0.07 10^3/uL (0.0-0.06); HCT 46.3 % (40.0-50.0); HGB 15.5 g/dL (13.5-17.5); MCH 29.9 pg (27.0-33.0); MCHC 33.5 % (32.0-36.0); MCV 89 fL (80-95); MPV 9.4 fL (8.0-11.0); Platelet Count 135 10^3/uL (130-400); RBC 5.19 10^6/uL (4.36-5.78); RDW 12.8 % (11.8-14.1); RDW-SD 41.8 fL
[2024-07-14 10:33] LABS: WBC 26.39 10^3/uL (4.4-10.8)
[2024-07-14 10:39] LABS: Calculated LDL 64 mg/dL (<100); Cholesterol 137 mg/dL (<200); HDL Cholesterol 55 mg/dL (40-60); Triglyceride 90 mg/dL (<150)
[2024-07-14 10:43] LABS: Absolute Lymphocyte Count 19.26 10^3/uL (1.2-3.4); Absolute Neutrophil Count 4.75 10^3/uL (1.2-6.7); Atypical Lymphocytes % 3 %
[2024-07-14 10:44] LABS: Absolute Basophil Count 0.26 10^3/uL (0.0-0.2); Absolute Eosinophil Count 0.53 10^3/uL (0.0-0.7); Absolute Monocyte Count 1.58 10^3/uL (0.1-0.8); Diff Comment Manual Differential; RBC Morphology Normal
[2024-07-14 10:47] LABS: ALT 25 U/L (16-63); AST 19 U/L (15-37); Albumin 4.1 g/dL (3.4-5.0); Alkaline Phosphatase 86 U/L (46-116); Anion Gap 1.4 mmol/L (3-11); BUN 21 mg/dL (7-18); Bilirubin, Total 1.23 mg/dL (0.2-1.0); CO2 32.6 mmol/L (21.0-32.0); CREATININE 1.2 mg/dL (0.70-1.30); Calcium 8.8 mg/dL (8.5-10.1); Chloride 107 mmol/L (98-107); Glucose 103 mg/dL (74-106); LDH 205 U/L (85-227); Potassium 4.6 mmol/L (3.5-5.1); Sodium 141 mmol/L (136-145); Total Protein 6.9 g/dL (6.4-8.2)
== END 2024-07-14 03:28 | disposition home or self-care (01) ==
LOC: LBO 03:27
PROVIDERS: Internal Medicine Hematology & Oncology; PCP Family Medicine; Visit Provider Family Medicine
DX: E78.5 Hyperlipidemia, unspecified (principal); C91.10 Chronic lymphocytic leukemia of B-cell type not having achieved remission
CPT/HCPCS: 36415; 80053; 80061; 83615; 85025

== ENCOUNTER 2024-10-23 01:48 | Outpatient (CLI) | payer MEDICARE, SELFPAY ==
[2024-10-23 11:00] LABS: ALT 32 U/L (16-63); AST 27 U/L (15-37); Alkaline Phosphatase 85 U/L (46-116); Anion Gap 6.6 mmol/L (3-11); BUN 20 mg/dL (7-18); Bilirubin, Total 0.9 mg/dL (0.2-1.0); CO2 31.4 mmol/L (21.0-32.0); Calcium 8.9 mg/dL (8.5-10.1); Chloride 104 mmol/L (98-107); Estimated GFR 83.01 (mL/min/1.73m2); Glucose 103 mg/dL (74-106); Potassium 4.3 mmol/L (3.5-5.1); Sodium 142 mmol/L (136-145); Total Protein 6.9 g/dL (6.4-8.2)
== END 2024-10-23 01:49 | disposition home or self-care (01) ==
LOC: LBO 01:49
PROVIDERS: PCP Family Medicine; Visit Provider Urology
DX: N40.1 Benign prostatic hyperplasia with lower urinary tract symptoms (principal); N13.8 Other obstructive and reflux uropathy; E78.5 Hyperlipidemia, unspecified
CPT/HCPCS: 36415; 80053; 84153

== ENCOUNTER → 2024-10-30 09:37 | Outpatient (BNVA) | payer MEDICARE, SELFPAY | PROVIDERS: PCP Family Medicine; Visit Provider Urology | DX: N40.1 Benign prostatic hyperplasia with lower urinary tract symptoms (principal); N13.8 Other obstructive and reflux uropathy | CPT/HCPCS: 99213 ==

== ENCOUNTER 2025-01-12 03:33 | Outpatient (CLI) | payer MEDICARE, SELFPAY ==
[2025-01-12 09:38] LABS: Abs Immature Grans 0.08 10^3/uL (0.0-0.06); HCT 46.8 % (40.0-50.0); HGB 15.5 g/dL (13.5-17.5); Immature Grans % 0.3 %; MCH 29.5 pg (27.0-33.0); MCHC 33.1 % (32.0-36.0); MCV 89 fL (80-95); MPV 9.8 fL (8.0-11.0); Platelet Count 119 10^3/uL (130-400); RBC 5.26 10^6/uL (4.36-5.78); RDW 13.0 % (11.8-14.1); RDW-SD 42.4 fL
[2025-01-12 09:54] LABS: ALT 25 U/L (16-63); AST 19 U/L (15-37); Albumin 4.1 g/dL (3.4-5.0); Alkaline Phosphatase 75 U/L (46-116); Anion Gap 4.8 mmol/L (3-11); BUN 21 mg/dL (7-18); Bilirubin, Total 1.0 mg/dL (0.2-1.0); CO2 32.2 mmol/L (21.0-32.0); Calcium 8.5 mg/dL (8.5-10.1); Chloride 105 mmol/L (98-107); Estimated GFR 74.04 (mL/min/1.73m2); Glucose 105 mg/dL (74-106); LDH 191 U/L (85-227); Potassium 4.6 mmol/L (3.5-5.1); Sodium 142 mmol/L (136-145); Total Protein 6.6 g/dL (6.4-8.2)
[2025-01-12 10:09] LABS: RBC Morphology Normal
[2025-01-12 10:11] LABS: WBC 31.14 10^3/uL (4.4-10.8)
== END 2025-01-12 03:34 | disposition home or self-care (01) ==
LOC: LBO 03:33
PROVIDERS: PCP Family Medicine; Visit Provider Internal Medicine Hematology & Oncology
DX: C91.10 Chronic lymphocytic leukemia of B-cell type not having achieved remission (principal)
CPT/HCPCS: 36415; 80053; 82784; 83615; 85025

== ENCOUNTER → 2025-05-12 08:55 | Outpatient (BNVA) | payer MEDICARE, SELFPAY | PROVIDERS: PCP Family Medicine; Referring Provider Family Medicine; Visit Provider Physical Therapy Assistant | DX: Z12.11 Encounter for screening for malignant neoplasm of colon (principal) | CPT/HCPCS: S0285 ==